=== PATIENT | female | born 1970 | race Caucasian/White ===

== ENCOUNTER 2018-06-06 19:49 | Emergency (ER) | payer OTHER | END 2018-06-07 02:37 | disposition home or self-care (01) | LOC: ED 19:49 ==

== ENCOUNTER 2020-03-17 21:25 | Emergency (ER) | payer OTHER ==
[~2020-03-17] VITALS: Ht 157.5 cm; Wt 90.7 kg
[2020-03-17 21:42] VITALS: Ht 157.5 cm; Wt 90.7 kg
[2020-03-17 22:26] LABS: BASOPHIL % 1.8 % (0.2-1.3); PLATELET COUNT 322 x10^3mcL (179-408)
[2020-03-17 22:27] LABS: RED CELL DISTRIBUTION WIDTH 17.2 % (12.3-17.7)
[2020-03-17 22:31] LABS: CALCIUM 9.3 mg/dL (8.5-10.1); CARBON DIOXIDE 24.8 mmol/L (21-32); CHLORIDE SERUM 103 mmol/L (98-107); GFR1 > 60 mL/min; GLUCOSE SERUM 98 mg/dL (74-106); POTASSIUM SERUM 3.7 mmol/L (3.5-5.1); SODIUM SERUM 138 mmol/L (136-145)
[2020-03-17 22:38] LABS: ALBUMIN 4.5 g/dL (3.4-5.0); ALKALINE PHOSPHATASE 60 U/L (46-116); ALT/SGPT 26 U/L (14-59); AST/SGOT 14 U/L (15-37); BILIRUBIN TOTAL 0.4 mg/dL (0.20-1.00); TOTAL PROTEIN, SERUM 7.5 g/dL (6.4-8.2)
[2020-03-18 00:05] VITALS: BP 133/75
[2020-03-18 00:17] LABS: microscopic required? YES; urine erythrocyte 2+ (NEGATIVE)
== END 2020-03-18 00:05 | disposition home or self-care (01) ==
LOC: ED 21:25
PROVIDERS: Emergency Medicine; Student in an Organized Health Care Education/Training Program
DX: N13.2 Hydronephrosis with renal and ureteral calculous obstruction (principal); Z88.8 Allergy status to other drugs, medicaments and biological substances
CPT/HCPCS: J1885; J2270; J7030

== ENCOUNTER → 2020-03-21 | Outpatient (CLI) | payer OTHER ==
[~2020-03-21] VITALS: Ht 157.5 cm; Wt 88.9 kg
--- NOTE | 2020-03-21 16:50 | NUR ---
COPIES OF CXR AND EKG WERE SENT TO OR FOR ANESTHESIOLOGIST TO REVIEW AND FAXED DR. CANDELARIA'S OFFICE.
== END | disposition home or self-care (01) ==
LOC: RD 10:00 → EDSTATUS 03-25 07:30 → DS 03-25 07:30 → OR 03-25 07:30
PROVIDERS: ATTEND Urology
DX: N20.0 Calculus of kidney (principal)